=== PATIENT | male | born 1985 | race Caucasian/White ===

== ENCOUNTER 2024-04-09 22:28 | Emergency (ER) | payer OTHER ==
[~2024-04-09] VITALS: Ht 182.9 cm; Wt 100.0 kg
[2024-04-09 22:34] VITALS: O2SAT 98
[2024-04-09 22:49] VITALS: TEMP 98.2; O2SAT 96
[2024-04-10 00:01] VITALS: BP 131/86; PULSE 94; RESP 18
[2024-04-10] MEDS: KETOROLAC 30MG/ML VIAL IM ONE (00:01)
[2024-04-10 01:56] LABS: CLARITY URINE CLEAR (CLEAR); COLOR URINE YELLOW (YELLOW); GLUCOSE URINE NEGATIVE (NEGATIVE); KETONES URINE NEGATIVE (NEGATIVE); PH URINE 5.5 (4.5-8.0); PROTEIN URINE TRACE (NEGATIVE); SPECIFIC GRAVITY URINE 1.029 (1.005-1.030)
[2024-04-10 01:58] LABS: NITRITE URINE NEGATIVE (NEGATIVE); OCCULT BLOOD URINE 1+ (NEGATIVE)
[2024-04-10 01:59] LABS: LEUKOCYTE ESTERASE URINE NEGATIVE (NEGATIVE)
[2024-04-10 02:02] LABS: SQUAMOUS EPITHELIAL CELL URINE 1+ /lpf (RARE/1+)
[2024-04-10 02:03] LABS: BACTERIA URINE TRACE; WBC URINE 0-2 /hpf (0-2)
== END 2024-04-10 03:03 | disposition home or self-care (01) ==
LOC: ER 22:28
DX: R33.9 Retention of urine, unspecified (principal)
CPT/HCPCS: 99283; 81003; 96372; J1885